=== PATIENT | female | born 1950 | race Caucasian/White ===

== ENCOUNTER → 2017-08-15 | Outpatient (CLI) | payer MEDICARE, MEDICAID ==
[~2017-08-15] MED LIST: CALTRATE-600 W600 MG PO; CIPRO 500MG TA500 MG PO; CITRACAL PLUS1 TAB PO; CYMBALTA 60MG60 MG PO; GLUCOSAMINE & C1 TA1 PO; MULTIPLE VITAMI1 CAP PO; MVI; NORCO 325 MG-51 TAB PO; NORCO 325 MG-7.1 TAB PO; PERCOCET 325 MG1 TA2 PO; PHENERGAN 25 TA25 MG PO; PHENERGAN25 MG RC; PREMPRO 0.625/21 TAB PO; ZOFRAN INJ4 MG/2 ML IV
== END ==
LOC: MC.RAD 14:00
DX: Z12.31 Encounter for screening mammogram for malignant neoplasm of breast (principal); Z98.82 Breast implant status

== ENCOUNTER → 2017-08-18 | Outpatient (CLI) | payer MEDICARE, MEDICAID | LOC: COL.RAD 12:50 | DX: G31.9 Degenerative disease of nervous system, unspecified (principal); G30.0 Alzheimer's disease with early onset; F02.80 Dementia in other diseases classified elsewhere, unspecified severity, without behavioral disturbance, psychotic disturbance, mood disturbance, and anxiety | CPT/HCPCS: Q9967 ==

== ENCOUNTER 2017-10-18 10:40 | Day surgery (SDC) | payer MEDICARE, MEDICAID ==
[~2017-10-18] VITALS: Ht 157.5 cm; Wt 66.6 kg
[2017-10-18] VITALS (10 sets, daily range): BP systolic 94–127; BP diastolic 39–75; PULSE 59–84; TEMP 97.7–98.5
[2017-10-18] MEDS ORDERED: PREMPRO 0.625/21 TAB PO (11:12)
[2017-10-18] MEDS ORDERED: CYMBALTA 60MG60 MG PO (11:12)
[2017-10-18] MEDS ORDERED: KLONOPIN 1MG1 MG PO (11:13)
[2017-10-18] MEDS ORDERED: ARICEPT 5MG PO (11:14)
[2017-10-18] MEDS ORDERED: ANTI-DIARRHEAL2 MG PO (11:14)
[2017-10-18] MEDS ORDERED: BUSPAR5 MG PO (11:15)
[2017-10-18] MEDS ORDERED: MELAT3MGTAB PO (11:15)
[2017-10-19 05:14] VITALS: BP 100/48; PULSE 57; TEMP 97.9
[2017-10-19] MEDS ORDERED: NORCO 325 MG-51 TAB PO (08:56)
[2017-10-19 09:34] VITALS: BP 106/47; PULSE 62; TEMP 98
== END 2017-10-19 11:15 | disposition home or self-care (01) ==
LOC: SDCO 10:40 → SURG 16:50 → SDCO 10-19 11:15
DX: K64.2 Third degree hemorrhoids (principal); N81.6 Rectocele; F17.210 Nicotine dependence, cigarettes, uncomplicated; I34.1 Nonrheumatic mitral (valve) prolapse; Z79.82 Long term (current) use of aspirin; E78.00 Pure hypercholesterolemia, unspecified; G89.29 Other chronic pain; F11.20 Opioid dependence, uncomplicated; M48.00 Spinal stenosis, site unspecified
CPT/HCPCS: OP; J1100; J1885; J2250; J2405; J2704; J3010; J7120

== ENCOUNTER 2019-03-04 18:43 | Emergency (ER) | payer MEDICARE, MEDICAID ==
[~2019-03-04] VITALS: Ht 62 cm; Wt 62.7 kg
[~2019-03-04 18:43] MED LIST changes: +ANTI-DIARRHEAL2 MG PO; +ARICEPT 5MG PO; +BUSPAR5 MG PO; +KLONOPIN 1MG1 MG PO; +MELAT3MGTAB PO; +NAMENDA5 MG PO
[2019-03-04] MEDS ORDERED: MELATONIN5 M1 SL (19:30)
[2019-03-04] MEDS ORDERED: CYMBALTA 30MG30 MG PO (19:30)
[2019-03-04 20:30] LABS: COLLECTION METHOD CLEAN CATCH
[2019-03-04 20:43] LABS: MUCOUS Present /lpf; PH 5 (5-8); URINE APPEARANCE Clear; URINE BACTERIA Rare /hpf; URINE BILIRUBIN Negative (NEGATIVE); URINE BLOOD Negative (NEGATIVE); URINE COLOR Yellow; URINE GLUCOSE Negative (NEGATIVE); URINE KETONE Negative (NEGATIVE); URINE LEUKOCYTE ESTERASE Trace (NEGATIVE); URINE NITRATE Negative (NEGATIVE); URINE PROTEIN(semi-quant) Negative (NEGATIVE); URINE UROBILINOGEN Negative (NEGATIVE)
[2019-03-04 20:52] LABS: TRICYCLIC ANTIDEPRESS URINE NEGATIVE
[2019-03-04 21:07] LABS: BASO % 0.4 % (0.0-2.0); EOS # 0.1 (0.0-0.7); EOS % 0.7 % (0-4.0); GRAN # 4.3 (1.4-6.5); GRAN % 55.8 % (42.2-75.2); HEMATOCRIT 44.3 % (37.0-47.0); HEMOGLOBIN 14.6 g/dl (12.5-16.0); LYMPH # 2.9 (1.2-3.4); LYMPH % 38.2 % (20.0-51.0); MEAN CELL VOLUME 88 fl (80.0-100.0); MEAN CORPUSCULAR HEMOGLOBIN 29 pg (27.0-31.0); MEAN CORPUSCULAR HGB CONC 33 g/dl (33.0-37.0); MEAN PLATELET VOLUME 9.7 fl (7.4-10.4); MONO # 0.3 (0.1-0.6); MONO % 4.4 % (1.7-9.3); PLATELET COUNT 316 K/mm3 (130-400); RED BLOOD COUNT 5.03 M/mm3 (4.10-5.30); REDCELL DISTRIBUTION WIDTH-CV 13.5 % (11.5-14.5)
[2019-03-04 21:26] LABS: ALANINE AMINOTRANSFERASE 24 U/L (9-52); ALBUMIN 4.1 gm/dL (3.5-5.0); ALKALINE PHOSPHATASE 88 U/L (50-136); ANION GAP 8 mmol/L (7-16); AST,SGOT 29 U/L (15-37); BILIRUBIN,TOTAL 0.7 mg/dL (0.0-1.0); BLOOD UREA NITROGEN 20 mg/dL (7-17); CALCIUM 10.3 mg/dL (8.4-10.2); CARBON DIOXIDE 29 mmol/L (22-30); CHLORIDE 105 mmol/L (98-107); CREATININE, serum 0.64 (0.52-1.25); GLUCOSE 111 mg/dL (74-106); POTASSIUM 3.7 mmol/L (3.4-5.0); SODIUM 141 mmol/L (137-145); TOTAL PROTEIN 7.2 gm/dL (6.4-8.2)
[2019-03-04 21:27] LABS: ACETAMINOPHEN < 10 ug/mL (10-30); ALCOHOL(ethanol),MEDICAL < 10 mg/dL; SALICYLATE < 1.0 mg/dL
[2019-03-05 15:30] VITALS: BP 125/60; PULSE 65; TEMP 97.9
== END 2019-03-05 15:35 ==
LOC: COL.ER 18:43
PROVIDERS: Emergency Medicine
DX: N39.0 Urinary tract infection, site not specified (principal); K58.9 Irritable bowel syndrome, unspecified; F17.210 Nicotine dependence, cigarettes, uncomplicated; Z90.49 Acquired absence of other specified parts of digestive tract; Z87.442 Personal history of urinary calculi

== ENCOUNTER → 2020-04-02 | Outpatient (CLI) | payer MEDICARE, MEDICAID ==
[~2020-04-02] MED LIST changes: +CYMBALTA 30MG30 MG PO; +MELATONIN5 M1 SL
== END ==
LOC: COL.RAD 12:30
DX: M50.23 Other cervical disc displacement, cervicothoracic region (principal); M51.24 Other intervertebral disc displacement, thoracic region; M48.02 Spinal stenosis, cervical region; M51.26 Other intervertebral disc displacement, lumbar region; M48.07 Spinal stenosis, lumbosacral region; M54.31 Sciatica, right side; M54.32 Sciatica, left side

== ENCOUNTER 2021-03-26 10:40 | Day surgery (SDC) | payer MEDICARE, MEDICAID ==
[~2021-03-26] VITALS: Ht 157.5 cm; Wt 76.5 kg
[2021-03-26] MEDS ORDERED: SYNTHROID 0.0.025 MG PO (11:15)
[2021-03-26 11:16] VITALS: BP 129/83; PULSE 97; TEMP 98.1
[2021-03-26 12:20] VITALS: BP 137/54; PULSE 80; TEMP 97.7
--- NOTE | 2021-03-26 12:20 | NUR ---
PATIENT TRANSPORTED PER CART FROM GI SUITE TO BAY 8 ACCOMPANIED BY ENDO RN. PATIENT AMBULATED FROM CART TO CHAIR WITH STEADY GAIT AND 2 ASSIST. PATIENT TALKING WITH STAFF. MONITORS APPLIED. VSS ON ROOM AIR. VERBAL REPORT RECEIVED.
[2021-03-26 12:30] VITALS: BP 106/62; PULSE 70
--- NOTE | 2021-03-26 12:33 | NUR ---
VSS ON ROOM AIR. DR ROGEL SPEAKS WITH PATIENT. PATIENT EATS TOAST AND DRINKS COFFEE AND OJ JUICE. DENIES DISCOMFORT AND NAUSEA.
[2021-03-26 12:45] VITALS: BP 105/72; PULSE 74
--- NOTE | 2021-03-26 12:53 | NUR ---
VSS ON ROOM AIR. PATIENT TOLERATES FOOD AND DRINK WITHOUT PROBLEMS. PATIENT TALKS WITH STAFF.
[2021-03-26 13:00] VITALS: BP 113/65; PULSE 72
--- NOTE | 2021-03-26 13:10 | NUR ---
VVS STABLE ON ROOM AIR. PATIENT TALKS WITH STAFF. IV DC'D WITH CATHETER TIP INTACT. PRESSURE AND BANDAGE APPLIED. 1310 DISCHARGE INSTRUCTIONS GIVEN VERBALLY AND DISCHARGE PACKET GIVEN TO PATIENT. QUESTIONS ANSWERED AND PATIENT VOICED UNDERSTANDING. PATIENT CHANGED INTO STREET CLOTHES. 1324 PATIENT DISCHARGE PER WHEEL CHAIR ACCOMPANIED BY ENDO RN. PATIENT'S FRIEND DRIVING [place].
[2021-03-26 13:15] VITALS: BP 124/66; PULSE 75
== END 2021-03-26 13:25 | disposition home or self-care (01) ==
LOC: SDCO 10:40
DX: Z12.11 Encounter for screening for malignant neoplasm of colon (principal); K62.1 Rectal polyp; D12.5 Benign neoplasm of sigmoid colon; K63.5 Polyp of colon; K57.30 Diverticulosis of large intestine without perforation or abscess without bleeding; E78.5 Hyperlipidemia, unspecified; E03.9 Hypothyroidism, unspecified; I34.1 Nonrheumatic mitral (valve) prolapse; G62.9 Polyneuropathy, unspecified; G47.30 Sleep apnea, unspecified; G89.29 Other chronic pain; M54.9 Dorsalgia, unspecified; F03.90 Unspecified dementia, unspecified severity, without behavioral disturbance, psychotic disturbance, mood disturbance, and anxiety; F41.9 Anxiety disorder, unspecified; F32.9 Major depressive disorder, single episode, unspecified; F17.210 Nicotine dependence, cigarettes, uncomplicated; Z20.822 Contact with and (suspected) exposure to COVID-19; Z90.49 Acquired absence of other specified parts of digestive tract; Z79.890 Hormone replacement therapy; Z79.899 Other long term (current) drug therapy
CPT/HCPCS: J2704; J7120

== ENCOUNTER 2021-05-18 09:09 | Day surgery (SDC) | payer MEDICARE, MEDICAID ==
[~2021-05-18] VITALS: Ht 157.5 cm; Wt 79.4 kg
[~2021-05-18 09:09] MED LIST changes: +SYNTHROID 0.0.025 MG PO
[2021-05-18] MEDS ORDERED: NORCO 325 MG-51 TAB PO ×2 (09:57→12:39)
[2021-05-18 10:15] VITALS: BP 141/81; PULSE 87; TEMP 98.2
--- NOTE | 2021-05-18 11:00 | NUR ---
Patient is resting and awaits surgery.
[2021-05-18] MEDS ORDERED: PYRIDIUM 100MG100 MG PO (12:38)
[2021-05-18 14:16] VITALS: TEMP 97.8
[2021-05-18 14:33] VITALS: BP 120/60; PULSE 59
--- NOTE | 2021-05-18 14:33 | NUR ---
Patient returns to room 4 per cart from PACU accompanied by Aleja BLUM and is awake and alert. Temp 98.4 and room air sats 96%. IV fluids infusing and site is free of redness. Denies pain or nausea. Siderails up x2 and call light in reach.
--- NOTE | 2021-05-18 14:36 | NUR ---
Assisted up to the bathroom and gait steady.
[2021-05-18 14:48] VITALS: BP 131/63; PULSE 89
--- NOTE | 2021-05-18 14:48 | NUR ---
Returns to room after voiding. Gait steay. Does well with fluids. Denies pain.
[2021-05-18 15:03] VITALS: BP 119/63; PULSE 82
--- NOTE | 2021-05-18 15:03 | NUR ---
Resting on the cart and watches TV and awaits dietary tray.
[2021-05-18 15:18] VITALS: BP 133/69; PULSE 81
--- NOTE | 2021-05-18 15:18 | NUR ---
Eating lunch tray now. IV to INT. Denies pain or nausea.
--- NOTE | 2021-05-18 16:00 | NUR ---
Continuing to eating tray of food. Denies pain or nausea.
--- NOTE | 2021-05-18 17:00 | NUR ---
Patient is dressed. INT needle discontinued and site is free of redness.
--- NOTE | 2021-05-18 17:07 | NUR ---
Dismissal instructions given and signed. All questions answered.
--- NOTE | 2021-05-18 17:17 | NUR ---
Patient dismissed to home driven by brother and taken to the front door per wheelchair and assisted into vehicle with instructions in hand.
== END 2021-05-18 17:17 | disposition home or self-care (01) ==
LOC: SDCO 09:09
DX: N20.1 Calculus of ureter (principal); R19.00 Intra-abdominal and pelvic swelling, mass and lump, unspecified site; G47.33 Obstructive sleep apnea (adult) (pediatric); G30.9 Alzheimer's disease, unspecified; E78.00 Pure hypercholesterolemia, unspecified; E03.9 Hypothyroidism, unspecified; K58.9 Irritable bowel syndrome, unspecified; I34.0 Nonrheumatic mitral (valve) insufficiency; F41.9 Anxiety disorder, unspecified; F02.80 Dementia in other diseases classified elsewhere, unspecified severity, without behavioral disturbance, psychotic disturbance, mood disturbance, and anxiety; F32.9 Major depressive disorder, single episode, unspecified; F17.210 Nicotine dependence, cigarettes, uncomplicated; Z79.890 Hormone replacement therapy; Z79.899 Other long term (current) drug therapy; Z99.89 Dependence on other enabling machines and devices; Z20.822 Contact with and (suspected) exposure to COVID-19; Z79.891 Long term (current) use of opiate analgesic
CPT/HCPCS: C1769; C1894; C2617; J0690; J1100; J2405; J2704; J3010; J7120; Q9967

== ENCOUNTER 2021-12-23 15:45 | Outpatient (RCR) | payer MEDICARE, MEDICAID ==
[~2021-12-23 15:45] MED LIST changes: +PYRIDIUM 100MG100 MG PO
== END 2021-12-28 | disposition home or self-care (01) ==
LOC: WSPT
DX: M47.812 Spondylosis without myelopathy or radiculopathy, cervical region (principal); M47.816 Spondylosis without myelopathy or radiculopathy, lumbar region; M40.294 Other kyphosis, thoracic region

== ENCOUNTER → 2022-01-27 | Outpatient (RCR) | payer MEDICARE, MEDICAID | END | disposition home or self-care (01) | LOC: WSPT | DX: M47.812 Spondylosis without myelopathy or radiculopathy, cervical region (principal); M47.816 Spondylosis without myelopathy or radiculopathy, lumbar region; M40.204 Unspecified kyphosis, thoracic region ==

== ENCOUNTER 2022-02-22 14:15 | Outpatient (RCR) | payer MEDICARE, MEDICAID | END 2022-02-27 | disposition home or self-care (01) | LOC: WSPT | DX: M54.50 Low back pain, unspecified (principal); M54.2 Cervicalgia ==

== ENCOUNTER 2022-03-03 14:15 | Outpatient (RCR) | payer MEDICARE, MEDICAID | END 2022-03-03 14:52 | disposition home or self-care (01) | LOC: WSPT 14:15 | DX: M47.812 Spondylosis without myelopathy or radiculopathy, cervical region (principal); M47.816 Spondylosis without myelopathy or radiculopathy, lumbar region; M48.54XA Collapsed vertebra, not elsewhere classified, thoracic region, initial encounter for fracture; M40.294 Other kyphosis, thoracic region ==